=== PATIENT | male | born 2000 | race American Indian/Alaskan Native ===

== ENCOUNTER 2020-01-13 02:24 | Emergency (ER) | payer MEDICAID ==
--- NOTE | 2020-01-13 05:59 | Emergency Department Report ---
ED Rash HPI - HPI Chief Complaint: Skin Rash Stated Complaint: BUMP ON HEAD Time Seen by Provider: 01/13/20 03:57 Duration: Over a month worse the last 2 to 3 days Location: Head (To the caudal aspect of the head has a patch of hair missing with a cystic-like bump from which she had evacuated some pus a couple days ago) Suspected Cause: Other Rash Symptoms: No Itching, No Facial Swelling, No Choking Sensation, No Wheezing/Dyspnea, No Peeling, No Malaise, No Myalgias ED Review of Systems ROS: Stated complaint: BUMP ON HEAD Other details as noted in HPI ED Past Medical Hx - Past Medical History Previous Medical History?: Yes Additional medical history: Glaucoma - Surgical History Past Surgical History?: No - Social History Smoking Status: Never Smoker Substance Use Type: Marijuana - Medications Home Medications: Home Medications Medication Instructions Recorded Confirmed Last Taken Type Ketorolac [Toradol] 10 mg PO Q6H PRN #10 tablet 01/13/20 Unknown Rx cephALEXin [Keflex] 500 mg PO Q6HR #28 capsule 01/13/20 Unknown Rx Rash Exam - Exam General: Vital signs noted. No distress. Alert and acting appropriately. ED Course Vital Signs 01/13/20 03:23 Temperature 98.2 F Pulse Rate 83 Respiratory 20 Rate Blood Pressure 130/93 O2 Sat by Pulse 99 Oximetry Critical care attestation.: If time is entered above; I have spent that time in minutes in the direct care of this critically ill patient, excluding procedure time. ED Disposition Disposition: - TO HOME OR SELFCARE Condition: Stable Instructions: Abscess (ED) Prescriptions: cephALEXin [Keflex] 500 mg PO Q6HR #28 capsule Ketorolac [Toradol] 10 mg PO Q6H PRN #10 tablet PRN Reason: Pain Referrals: [facility] [Provider Group] - 3-5 Days
[2020-01-13 07:26] VITALS: BP 127/84
== END 2020-01-13 04:50 | disposition home or self-care (01) ==
LOC: ED 02:24
DX: R21 Rash and other nonspecific skin eruption (principal); F12.10 Cannabis abuse, uncomplicated; Z79.899 Other long term (current) drug therapy
CPT/HCPCS: 99282